=== PATIENT | female | born 1960 | race Asian ===

== ENCOUNTER 2025-01-04 11:56 | Emergency (ER) | payer MEDICARE, MEDICAID, SELFPAY ==
[2025-01-04 12:46] VITALS: BP 179/125; BP 185/119; PULSE 102; RESP 18; TEMP 36.6; O2SAT 98
--- NOTE | 2025-01-04 13:48 | EDNOTE_ITS ---
ED Animal Bite RME/HPI General Chief Complaint: Animal Bite Stated Complaint: Spider bite Time Seen by Provider: 01/04/25 12:01 Arrival date/time: 01/04/25 11:56 RME / HPI RME / HPI narrative: 64 y/o patient with HX of HTN and DM brought in by son with complaint of spider bite that occurred prior to coming to ED. She rates her pain as a 10/10. she denies n/t to bilateral extremity. Related Data Home Medications ?Medication ?Instructions ?Recorded ?Confirmed BP MED PO QDAY ##0 08/31/13 Previous Rx's ?Medication ?Instructions ?Recorded Lisinopril/Hydrochlorothiazide 20 mg PO Q12HR #60 tabs 08/31/13 (Lisinopril-Hctz 20/25MG Tab) doxycycline hyclate 100 mg capsule 100 mg PO BID 10 da ys #20 caps 01/04/25 ibuprofen 600 mg tablet 600 mg PO QID PRN pain #20 t abs 01/04/25 Allergies Allergy/AdvReac Type Severity Reaction Status Date / Time NKA* Allergy Uncoded 07/15/12 08:14 Review of Systems Review of Systems Systems Reviewed: All systems reviewed, normal except as documented Constitutional Constitutional: Reports system reviewed and no additional complaints, except as documented Eyes Eyes: Reports system reviewed and no additional complaints, except as documented ENT Ears, Nose, Mouth, and Throat: Reports system reviewed and no additional complai nts, except as documented Cardiovascular Cardiovascular: Reports system reviewed and no additional complaints, except as documented Respiratory Respiratory: Reports system reviewed and no additional complaints, except as documented Musculoskeletal Musculoskeletal: Reports system reviewed and no additional complaints, except as documented Integumentary/Breasts Skin/Breast: Reports system reviewed and no additional complaints, except as documented, Reports as per HPI, Denies bleeding lesions and Denies changing lesions Neurologic Neurologic: Reports system reviewed and no additional complaints, except as documented Psychiatric Psychiatric: Reports system reviewed and no additional complaints, except as documented ED Exam General General appearance: Present in no apparent distress Head Head exam: Present atraumatic and normocephalic Eye Eye exam: Present normal appearance ENT ENT exam: Present normal exam and normal oropharynx Neck Neck exam: Present normal inspection and full ROM Chest Chest inspection: Present normal inspection and symmetric chest wall rise Respiratory Respiratory exam: Present normal lung sounds bilaterally Cardiovascular Cardiovascular exam: Present regular rate Extremities Exam Extremities exam: Present normal inspection and full ROM Neurological Exam Neurological exam: Present alert and oriented X3 Skin Skin exam: Present warm Course Quality Measures none Orders Category Date Time Status Doxycycline [Vibramycin] Med 01/04/25 13:49 Discontinued 100 mg PO X1 ONE Morphine Inj Med 01/04/25 13:49 Discontinued 4 mg IM X1 ONE Ondansetron Odt [Zofran Odt] Med 01/04/25 13:49 Discontinued 4 mg PO X1 ONE metOLazone [Zaroxolyn] Med 01/04/25 13:49 Discontinued 10 mg PO X1 ONE Vital Signs Vital signs: Vital Signs Temperature 97.9 F 01/04/25 12:46 Pulse Rate 102 H 01/04/25 12:46 Respiratory Rate 18 01/04/25 12:46 Blood Pressure 185/119 H 01/04/25 12:46 Pulse Oximetry (%) 98 01/04/25 12:46 Oxygen Delivery Method Room Air 01/04/25 12:46 Animal Bite MDM Narrative MDM Narrative:: patient complains of pain to neck s/p bite from a spider, she is diabetic and non compliant with her BP meds, patient treated for pain and HBP in ED and will be d/c home with oral abx and instructed to f/up with PCP regarding her [employer] meds. Patient data External records reviewed:: None Clinical information provided by:: patient and family Social determinants that could affect healthcare access:: none Patient has the following chronic illnesses:: DM and HTN How is presenting disease/condition affected by chronic disease/condition?: uneffected by Evaluation data The following diagnostics were reviewed and interpreted by me:: other (specify) Lab and/or radiology exams considered but not ordered:: na Interpretation Summary: na Medications / Prescriptions Medications or Prescriptions considered but not ordered:: meds considered ordered Medication administrations:: Medication Administration History Discontinued Medications Doxycycline Hyclate (Doxycycline 100 Mg Tablet) 100 mg PO X1 ONE Stop: 01/04/25 13:50 Last Admin: 01/04/25 14:15 Dose: 100 mg Documented By: HARRY Metolazone (Metolazone 2.5 Mg Tablet) 10 mg PO X1 ONE Stop: 01/04/25 13:50 Last Admin: 01/04/25 15:37 Dose: 10 mg Documented By: YUE Morphine Sulfate (Morphine Sulf Inj 10 Mg/Ml Vial) 4 mg IM X1 ONE Stop: 01/04/25 13:50 Last Admin: 01/04/25 14:15 Dose: 4 mg Documented By: HARRY Ondansetron HCl (Ondansetron Odt 4 Mg Tabrap) 4 mg PO X1 ONE; Protocol Stop: 01/04/25 13:50 Last Admin: 01/04/25 14:15 Dose: 4 mg Documented By: HARRY per above Consultations Consultation(s) initiated? (list below): No Diagnosis Differential diagnosis animal bite: other (spider bite) Most likely diagnosis given after review of the tests above:: spider bite Admission Indicated Admission indicated?: not indicated Explain why admission is indicated or not indicated:: no life threatening emergency noted Admission Request Was there a request for admission?: No Disposition Plan Disposition Plan: Discharge Discharge Attestation Discharge Attestation: The patient and all family members were given an opportunity to ask questions and understood the discharge instructions. Discharge instructions specifically effects, indications for sooner follow up or return to the emergency department, and the expected course of current diagnosis. Patient condition: Stable Discharge Plan Plan Patient Disposition: HOME (Self Care) Prescriptions/Referrals Prescriptions/Med Rec: New doxycycline hyclate 100 mg capsule 100 mg PO BID 10 Days Qty: 20 0RF ibuprofen 600 mg tablet 600 mg PO QID PRN (Reason: pain) Qty: 20 0RF No Action BP MED PO QDAY Qty: 0 Lisinopril/Hydrochlorothiazide (Lisinopril-Hctz 20/25MG Tab) 1 TAB tablet 20 mg PO Q12HR Qty: 60 0RF Referrals: Jamshid Sosa PA-C [Primary Care Provider] - In 1 week Problem List Clinical Impression: Brown recluse spider bite, Hypertension, uncontrolled Patient/Caregiver Discharge Instructions Education Materials: ED Brown Recluse Spider Bite, ED Hypertension, Established Print Language: My Healthy World[employer] Stand Alone Forms: Celine Award Info., Patient Portal Info Letter
[2025-01-04] MEDS: DOXYCYCLINE 100 MG TABLET PO (14:15)
[2025-01-04] MEDS: MORPHINE SULF INJ 10 MG/ML VIAL 4 MG IM (14:15)
[2025-01-04] MEDS: ONDANSETRON ODT 4 MG TABRAP PO (14:15)
[2025-01-04 14:39] VITALS: BP 175/113; BP 199/135; PULSE 99; RESP 18; TEMP 36.4; O2SAT 98
[2025-01-04 15:37] VITALS: BP 179/121; PULSE 100
[2025-01-04] MEDS: metOLazone 2.5 MG TABLET 10 MG PO (15:37)
[2025-01-04 15:42] VITALS: BP 179/121; PULSE 100; RESP 17; TEMP 36.7; O2SAT 98
== END 2025-01-04 15:50 | disposition home or self-care (01) ==
PROVIDERS: Emergency Provider Emergency Medicine; PCP Physician Assistant
DX: T63.331A Toxic effect of venom of brown recluse spider, accidental (unintentional), initial encounter (principal); M54.2 Cervicalgia; I10 Essential (primary) hypertension
CPT/HCPCS: 96372; 99283; J2270; Q0162; A9270